=== PATIENT | female | born 1990 | race African-American/Black ===

== ENCOUNTER 2020-02-06 10:01 | Outpatient (CLI) | payer OTHER, SELFPAY ==
[2020-02-06 10:43] LABS: Hemoglobin 11.2 g/dL (12.0-15.0); Mean Corpuscular HGB Conc 33.9 g/dl (32-36); Mean Corpuscular Hemoglobin 31.3 pg (26-34); Mean Corpuscular Volume 92.2 fl (80-100); Platelet Count Result 227 k/mm3 (150-375); Red Blood Count 3.58 M/mm3 (4.2-5.4); Red Cell Distribution Width 12.6 % (11.5-14.5); White Blood Count 8.8 K/mm3 (4.5-10.0)
[2020-02-06 11:37] LABS: HIV 1/2 Ab P24 Ag Result Negative (Negative)
[2020-02-06 12:11] LABS: Hepatitis B Surface Antigen Negative (Negative); Rubella IgG Antibody 86.4 IU/ML
[2020-02-07 21:11] LABS: Rapid Plasma Reagin Non-Reactive (NonReactive)
[2020-02-09 18:58] LABS: CMV IgG Antibody <0.60 U/mL (<0.60)
== END 2020-02-06 10:02 | disposition home or self-care (01) ==
LOC: ANHLAB 10:04
PROVIDERS: Visit Provider Obstetrics & Gynecology
DX: Z34.81 Encounter for supervision of other normal pregnancy, first trimester (principal); Z3A.00 Weeks of gestation of pregnancy not specified
CPT/HCPCS: 36415; 84702; 85027; 86592; 86644; 86703; 86747; 86762; 86787; 86850; 86900; 86901; 87086; 87088; 87340; G0432

== ENCOUNTER 2020-02-16 14:31 | Emergency (ER) | payer OTHER, SELFPAY ==
[2020-02-16 14:36] VITALS: BP 112/68; PULSE 99; RESP 18; TEMP 36.4; O2SAT 97
--- NOTE | 2020-02-16 14:52 | ED.GENADULT ---
HPI - General Adult General Chief complaint: Headache Stated complaint: with headache Time Seen by Provider: 02/16/20 14:44 Source: patient History of Present Illness HPI narrative: Patient is a 29 y/o female complaining of frontal headache for last 3 weeks. She describes her headache as sharp and throbbing. She rates her headache as 7/10. Her headache is mostly on the right side. She took Ibuprofen, which did not help. She has no fever, chill, neck pain, focal weakness or numbness. She is able to ambulate without difficulty. Of note, she states that she is 3 month . Related Data Home Medications Medication Instructions Recorded Confirmed vit no.[id number] tablet 02/16/20 [Classic ] Allergies Allergy/AdvReac Type Severity Reaction Status Date / Time No Known Allergies Allergy Unknown Verified 02/16/20 14:41 Review of Systems Constitutional: Constitutional: Denies chills, Denies fever(s), Reports headache(s) and Denies weakness Eyes: Eyes: Denies blurry vision ENT: Reports headache(s) and Denies neck pain Cardiovascular: Cardiovascular: Denies chest pain and Denies dyspnea Respiratory: Respiratory: Denies cough and Denies dyspnea Gastrointestinal: Gastrointestinal: Denies abdominal pain, Denies diarrhea, Denies nausea and Denies vomiting Genitourinary: Genitourinary: Denies hematuria and Denies dysuria Musculoskeletal: Musculoskeletal: Denies back pain and Denies neck pain Neurologic: Reports headache(s) and Denies weakness PMFSH Social History Social History Gender identity (if verbalized by the patient): Female Exam Const: General: no acute distress and well developed Orientation/consciousness: oriented to person, oriented to place, oriented to time and patient oriented x3 HENMT: Head: normocephalic Ears: external ears normal General nose exam: Normal external nose present Eyes: General: appearance normal, both eyes and all related structures Conjunctivae: conjunctivae normal Neck: Neck: normal visual inspection and full ROM Chest: Chest palpation & inspection: normal inspection of the chest and no tenderness Resp: Effort & Inspection: normal respiratory effort Auscultation: clear to auscultation bilaterally Cardio: Rate: regular rate Rhythm: regular rhythm GI: GI Palp: No abdominal tenderness and Yes Soft to palpation Skin: General skin exam: normal color and turgor normal Neuro: General: oriented to person, oriented to place, oriented to time and patient oriented x3 Cranial nerves: Yes CN's II-XII intact bilaterally Cognition (Neuro): normal cognition Speech: normal speech Motor exam (neuro): 5/5 motor strength present throughout Sensory Exam: normal sensation Coordination: [id number]-[id number] test normal and [id number] test normal Extrem: General: normal to inspection, full ROM and no pedal edema Psych: Appearance: grossly normal Mental Status: mental status grossly normal Affect: normal affect Course Reevaluation(s) Reevaluation #1: Patient wants to leave [facility] before evaluation is complete. Instructed patient to avoid NSAIDs and follow up with PCP. She is awake, alert and competent to make medical decision for herself. Date: 02/16/20 Time: 16:42 Vital Signs Vital signs: Vital Signs Temperature 36.4 C L 02/16/20 14:36 Pulse Rate 99 02/16/20 14:36 Respiratory Rate 18 02/16/20 14:36 Blood Pressure 112/68 02/16/20 14:36 Pulse Oximetry 97 02/16/20 14:36 Temperature 36.6 C 02/16/20 15:50 Pulse Rate 84 02/16/20 15:30 Respiratory Rate 18 02/16/20 15:30 Blood Pressure 107/67 02/16/20 15:30 Pulse Oximetry 99 02/16/20 15:30 Medical Decision Making Vital Signs Vital Signs: Vital Signs Temperature 36.4 C L 02/16/20 14:36 Pulse Rate 99 02/16/20 14:36 Respiratory Rate 18 02/16/20 14:36 Blood Pressure 112/68 02/16/20 14:36 Pulse Oximetry
[2020-02-16 15:07] LABS: Basophils Percent Auto 0.3 % (0.2-1.2); Eosinophils Absolute Auto 0.1 K/mm3 (0-0.3); Eosinophils Percent Auto 1.1 % (0-4.4); Hematocrit 33.3 % (37.0-47.0); Hemoglobin 11.5 g/dL (12.0-15.0); Immature Granulocyte Absolute 0.04 K/mm3 (0.00-0.031); Immature Granulocyte Percent A 0.4 % (0-0.5); Lymphocytes Absolute Auto 1.76 K/mm3 (0.9-3.2); Lymphocytes Percent Auto 15.6 % (18.3-44.2); Mean Corpuscular HGB Conc 34.5 g/dl (32-36); Mean Corpuscular Hemoglobin 32.2 pg (26-34); Mean Corpuscular Volume 93.3 fl (80-100); Mean Platelet Volume 9.2 fl (7.4-10.4); Monocytes Absolute Auto 0.5 K/mm3 (0.1-0.6); Monocytes Percent Auto 4.6 % (2.6-8.5); Neutrophils Absolute Auto 8.8 K/mm3 (1.3-6.7); Platelet Count Result 221 k/mm3 (150-375); Red Blood Count 3.57 M/mm3 (4.2-5.4); Red Cell Distribution Width 12.9 % (11.5-14.5); White Blood Count 11.3 K/mm3 (4.5-10.0)
[2020-02-16 15:18] LABS: Anion Gap 9 mmol/L (8-16); Blood Urea Nitrogen 12 mg/dL (7-17); Calcium 9.8 mg/dL (8.4-10.2); Carbon Dioxide 26 mmol/L (22-30); Chloride 99 mmol/L (98-107); Estimated CRCL calculation 98 ml/min; Estimated Glomerular Filt Rate > 60; Glucose 97 mg/dL (65-105); Sodium 134 mmol/L (137-145)
[2020-02-16] MEDS: SODIUM CHLORIDE 0.9% IV 1,000 ML 999 ML IV CONT (15:21)
[2020-02-16 15:30] VITALS: BP 107/67; PULSE 84; RESP 18; TEMP 36.6; O2SAT 99
[2020-02-16 15:50] VITALS: TEMP 36.6
[2020-02-16 16:17] LABS: Add Urine Microscopic? YES; Appearance Urine Cloudy (Clear); Bacteria Urine Trace /hpf; Bilirubin Urine Negative (Negative); Blood Urine Negative (Negative); Color Urine Yellow (Yellow); Glucose Urine UA Negative (Negative); Ketones Urine Negative (Negative); Leukocyte Esterase Ur Negative LEU/UL (Negative); Mucus Urine Rare /lpf; Nitrate Urine Negative (Negative); Protein Urine Negative (Negative); RBC Urine 0-2 /hpf (0-2); Squamous Epithelial Cell Urine Many /hpf (Few); Urobilinogen Urine Negative mg/dL (<2.0); WBC Urine 0-3 /hpf
--- NOTE | 2020-02-16 16:36 | PC.NURSE ---
Keesha Castillo, pt. wants to leave AMA; Dr. Gunner matthews, may discharge pt.
== END 2020-02-16 16:52 | disposition left against medical advice (07) ==
PROVIDERS: Emergency Provider Emergency Medicine
DX: O26.891 Other specified pregnancy related conditions, first trimester (principal); R51.9 Headache, unspecified; Z3A.00 Weeks of gestation of pregnancy not specified
CPT/HCPCS: 36415; 80048; 81001; 85025; 96360; 99283; A9270; J7030

== ENCOUNTER 2020-05-24 17:52 | Observation (INO) | payer OTHER, SELFPAY ==
[2020-05-24] VITALS (7 sets, daily range): BP systolic 112–126; BP diastolic 67–70; PULSE 84–110; RESP 16; TEMP 37.1; O2SAT 100; BMI 32.0
--- NOTE | 2020-05-24 17:52 | OBADM ---
This patient, Clau Thao, admitted to the OB room OB Post 117 for observation. Patient/family oriented to hospital policies and general routines including ID bracelet, bed and alarms, visiting hours, pain management, procedures, bathroom and other care routines, personal items, smoking policy, room service/diet, and visiting hours. Patient/Family are encouraged to report perceived risks to care and to ask questions if they do not understand what they are told or what they should do.
[2020-05-24] MEDS: ACETAMINOPHEN 500 MG TABLET 1000 MG PO (18:16)
[2020-05-24] MEDS: LACTATED RINGERS 1,000 ML 999 ML IV CONT (19:14)
[2020-05-24] MEDS: TERBUTALINE SULFATE 1 MG/ML VIAL 0.25 MG SUB-Q (20:42)
--- NOTE | 2020-05-24 22:45 | PC.NURSE ---
pt discharged, pt waiting in room with her belongings and discharge paperwork awaiting the arrival of her ride home. Pt comfortable and has no complaints or questions at this time.
--- NOTE | 2020-05-30 09:01 | PM.OBTRLD ---
OB - Triage/Final Diagnosis Visit Information Reason for evaluation: decreased movement Comments/Additional reasons for admission: I have assessed the risk for this patient, Clau Bi Thao, and determined that she would benefit from observation care.
== END 2020-05-24 23:26 | disposition home or self-care (01) ==
PROVIDERS: Admitting Provider Obstetrics & Gynecology; Visit Provider Obstetrics & Gynecology
DX: O36.8190 Decreased fetal movements, unspecified trimester, not applicable or unspecified (principal); Z3A.00 Weeks of gestation of pregnancy not specified
CPT/HCPCS: 96360; 96372; A9270; G0378; G0379; J3105; J7120

== ENCOUNTER 2020-06-02 11:10 | Outpatient (CLI) | payer OTHER, SELFPAY ==
[2020-06-02 12:58] LABS: Hemoglobin 11.6 g/dL (12.0-15.0); Mean Corpuscular HGB Conc 33.1 g/dl (32-36); Mean Corpuscular Hemoglobin 32.7 pg (26-34); Mean Corpuscular Volume 98.6 fl (80-100); Platelet Count Result 189 k/mm3 (150-375); Red Blood Count 3.55 M/mm3 (4.2-5.4); Red Cell Distribution Width 12.8 % (11.5-14.5); White Blood Count 10.7 K/mm3 (4.5-10.0)
[2020-06-02 13:36] LABS: Glucose 1 Hour PP 50gm Dose 116 mg/dL
[2020-06-02 14:17] LABS: HIV 1/2 Ab P24 Ag Result Negative (Negative)
== END 2020-06-02 11:11 | disposition home or self-care (01) ==
LOC: ANHLAB 11:12
PROVIDERS: Visit Provider Obstetrics & Gynecology
DX: Z34.92 Encounter for supervision of normal pregnancy, unspecified, second trimester (principal); Z3A.00 Weeks of gestation of pregnancy not specified
CPT/HCPCS: 36415; 82947; 85027; 86703; G0432

== ENCOUNTER 2020-08-20 16:25 | Inpatient (IN) | payer OTHER, SELFPAY ==
--- NOTE | 2020-07-29 11:04 | PC.NURSE ---
HAS PATIENT -- 6 PARA 1 ,1-SAB-3 EAB---PATIENT STATES SHE HAS ONLY HAD 4 PREGNANCIES, 1 LIVING CHILD,1-MOLAR AND 1-SAB
[2020-08-20] VITALS (16 sets, daily range): BP systolic 87–124; BP diastolic 51–80; PULSE 80–102; RESP 18; TEMP 36.3–36.4; BMI 28.3
[2020-08-20 17:20] LABS: Basophils Percent Auto 0.2 % (0.2-1.2); Eosinophils Absolute Auto 0.1 K/mm3 (0-0.3); Eosinophils Percent Auto 0.5 % (0-4.4); Hematocrit 36.2 % (37.0-47.0); Hemoglobin 12.1 g/dL (12.0-15.0); Immature Granulocyte Absolute 0.03 K/mm3 (0.00-0.031); Immature Granulocyte Percent A 0.3 % (0-0.5); Lymphocytes Absolute Auto 1.39 K/mm3 (0.9-3.2); Mean Corpuscular HGB Conc 33.4 g/dl (32-36); Mean Corpuscular Hemoglobin 32.5 pg (26-34); Mean Corpuscular Volume 97.3 fl (80-100); Mean Platelet Volume 10.2 fl (7.4-10.4); Monocytes Absolute Auto 0.6 K/mm3 (0.1-0.6); Monocytes Percent Auto 6.3 % (2.6-8.5); Neutrophils Absolute Auto 7.2 K/mm3 (1.3-6.7); Neutrophils Percent Auto 77.7 % (45.5-73.1); Platelet Count Result 150 k/mm3 (150-375); Red Blood Count 3.72 M/mm3 (4.2-5.4); Red Cell Distribution Width 13.9 % (11.5-14.5); White Blood Count 9.3 K/mm3 (4.5-10.0)
[2020-08-20] MEDS: DINOPROSTONE 10 MG VAG INSERT VAGINAL (18:03)
--- NOTE | 2020-08-20 18:28 | LDADM ---
This patient, Clau Thao, was admitted to Labor/Delivery/Recovery 108 on 08/20/20 at 16:25. Plans for labor, pain management and were discussed with patient. Patient/family oriented to hospital policies and general routines including ID bracelet, bed and alarms, visiting hours, pain management, procedures, bathroom and other care routines, personal items, smoking policy, room service/diet and guest tray routines, security routines, and visiting hours. Patient/Family are encouraged to report perceived risks to care and to ask questions if they do not understand what they are told or what they should do. See [facility] for further documentation.
[2020-08-21] VITALS (188 sets, daily range): BP systolic 92–131; BP diastolic 45–109; PULSE 53–191; RESP 18–20; TEMP 36.4–36.8; O2SAT 82–100
[2020-08-21] MEDS: LACTATED RINGERS 1,000 ML 125 ML IV CONT ×4 (05:03→12:14)
[2020-08-21] MEDS: OXYTOCIN 30 UNITS/NS 500 ML 30 UNITS/500 ML BAG IV CONT (05:05)
[2020-08-21] MEDS: ONDANSETRON INJ 4 MG/2 ML VIAL IV PUSH (12:15)
[2020-08-21 12:56] LABS: Rapid Plasma Reagin Non-Reactive (NonReactive)
--- NOTE | 2020-08-21 18:27 | WPDHPUPDATE1 ---
History and Physical Update Update Date/Time: 08/21/20 18:27 History and Physical has been reviewed, including an updated exam of the patient. There are NO changes in the patient's condition. Risks, benefits, and alternatives have been discussed and questions answered. Patient agrees to proceed with procedure.
--- NOTE | 2020-08-21 18:27 | WPDOBADMIT ---
Obstetrics - Admit Note Admission Note: record reviewed. No pertinent additions to the history and/or any subsequent changes in the physical findings that are not consistent with the expected course of the were found. Additions to the history and/or subsequent changes in the physical findings follow. None.
--- NOTE | 2020-08-21 18:27 | PM.OBPRVD ---
OB - Delivery Note Procedure Route of delivery: Episiotomy description: None Laceration Description: None Specimen: Yes Quantitative Blood Loss (ml): 300 Anesthesia type: Epidural Narrative: Patient prepped and draped in usual manner for this procedure. Maternal expulsive efforts readily delivered vertex further effort delivered the anterior/left shoulder and the rest of baby was delivered without difficulty. Placenta delivered spontaneously. Cervix vagina vulva were inspected no lacerations or tears. At this point the presurgery was considered terminated and immediate postop condition mother and baby were both excellent. Baby Weeks of gestation at delivery: 39 Weight (pounds): 8 Weight (ounces): 9 score one minute: 8 score five minutes: 9
[2020-08-21] MEDS: OXYTOCIN 30 UNITS/NS 500 ML 30 UNITS/500 ML BAG 125 UNITS IV CONT (18:50)
[2020-08-21] MEDS: IBUPROFEN 600 MG TABLET PO (22:09)
[2020-08-22] VITALS (9 sets, daily range): BP systolic 101–122; BP diastolic 53–76; PULSE 89–101; RESP 16–18; TEMP 36.6–37; O2SAT 96–100
[2020-08-22 05:09] LABS: Hematocrit 33.9 % (37.0-47.0); Hemoglobin 10.9 g/dL (12.0-15.0)
[2020-08-22] MEDS: IBUPROFEN 600 MG TABLET PO (07:52)
[2020-08-22] MEDS: MULTIVIT/MIN/PREN/FOL AC/IRON TABLET 1 TAB PO (07:53)
--- NOTE | 2020-08-22 08:49 | PM.OBDSVD ---
DS: Admitting Diagnosis Admitting Diagnosis Admitting Diagnosis: OB - DS: Summary OB Procedures : None OB Procedures Intrapartum: Spontaneous Vag Delivery OB Procedures: : None Time Spent with Patient Time attestation: Total time spent providing and/or coordinating discharge services: DS: Data Data Completed and Pending Pending studies at discharge: Pending at discharge 08/20/20 18:19 Surgical [PTH] Routine Labs on day of discharge: Labs from last 24 hours 08/22/20 08/20/20 04:33 17:10 Hgb 10.9 L Hct 33.9 L RPR Non-reactive Discharge Plan Discharge Discharging Clinician: Vinod Lewis Anticipated Discharge Date/Time: 08/23/20 12:00 Patient Disposition: Home, Self-Care Activity: as tolerated Diet: as tolerated Patient Instructions: Antibiotic Form Stand Alone Forms: General Discharge Information Follow-up/Referrals: Vinod Lewis MD [Physician] - 3 Weeks Discharge Medications: New ibuprofen 600 mg Tablet 600 mg PO Q6H PRN (Reason: Cramping) Qty: 30 RF: 0 Continued Classic 28 mg iron- 800 mcg Tablet 1 tablet PO DAILY RF: 0 Date of admission: 08/20/20 16:25 Primary Care Provider: PHYSICIAN,SALES PROMOTION COORDINATOR Admitting Provider: Vinod Lewis Attending physician on admission: Vinod Lewis Condition: Stable
[2020-08-22] MEDS: ACETAMINOPHEN 325 MG TABLET 650 MG PO (09:55)
--- NOTE | 2020-08-22 17:10 | PC.NURSE ---
Patient transferred to post room #281 ambulatory. Oriented to unit, room, information board, rooming in, admission packet and security measures. Patient verbalizes understanding.
--- NOTE | 2020-08-23 01:57 | PC.NURSE ---
08/22/2020 at 1950 I spoke to [facility] regarding her herpes status and that she was taking acyclovir while she was . Dr. Lewis has not ordered the patient to continue to take the medication after delivery. With no visitors or family in the room on or on the cell phone I continued to discuss the patient's herpes. I discussed the high importance of excellent handwashing and if the patient ever notices a breakout she needs to take or get a prescription for acyclovir. We also discussed the possibility of baby getting herpes from [facility] and how it may manifest itself as neurological problems in baby with seizures (rhythmic jerking), lethargy, poor eating, or baby just not acting right. I stressed the importance that if ANY of these symptoms show up in baby mother needs to call the pediatrican at once. Mother stated understanding.
[2020-08-23] MEDS: ACETAMINOPHEN 325 MG TABLET 650 MG PO (05:15)
[2020-08-23] MEDS: IBUPROFEN 600 MG TABLET PO (05:15)
--- NOTE | 2020-08-23 06:02 | PC.NURSE ---
08/23/2020 at 0050 Mother and mother's significant other were in mother's bed. Mother's bed was also raised to at least 2.5' off the floor. I immediately informed mother that for her safety that the bed must stay in the lower position. Mother states understanding.
[2020-08-23 08:10] VITALS: BP 107/66; PULSE 70; RESP 18; TEMP 36.3
--- NOTE | 2020-08-23 08:10 | PC.NURSE ---
Patient viewed the discharge video Mother & Baby Care, The First Two Weeks . Patient was given the opportunity and encouraged to ask questions. Patient verbalized understanding of information shared and has been given the mother/baby guide for home reference.
[2020-08-26 09:25] VITALS: BP 117/75; PULSE 82; RESP 20; TEMP 36.9; O2SAT 100
--- NOTE | 2020-09-01 23:30 | P.DS_ITS ---
DS: Admitting Diagnosis Admitting Diagnosis OB - DS: Summary OB Procedures : None OB Procedures Intrapartum: Spontaneous Vag Delivery OB Procedures: : None Time Spent with Patient Time attestation: Total time spent providing and/or coordinating discharge services: DS: Data Data Completed and Pending Completed studies during hospitalization: Pending at discharge 08/20/20 18:19 Surgical [PTH] Routine Discharge Plan Discharge Discharging Clinician: Vinod Lewis Anticipated Discharge Date/Time: 08/23/20 12:00 Patient Disposition: Home, Self-Care Activity: as tolerated Diet: as tolerated Discharge Instructions: Education: Mom and Baby Guide and Preeclampsia Handout Given to: Mother Follow-Up: Call your delivering provider's office for an appointment to be seen in: 3 weeks Mom and baby should come to the [facility] for the follow-up appointment. Appointment Date/Time: August 26, 2020 at 9:00 am What to expect at your follow-up visit: Physical Assessment Call [phone] if you are unable to keep your appointment time. BREAST CARE: * Wear a snug supportive bra. * For engorgement discomfort: Breast Feeding: * Apply warm moist washcloths * Express milk as needed to relieve engorgement * Wear loose clothing Bottle Feeding: * May apply ice packs EPISIOTOMY/PERINEAL CARE: * Until bleeding stops, use your david bottle after urinating * Change your pad frequently throughout the day * You may take sitz baths several times a day (fill your bathtub with warm water and soak for 20 minutes.) Do NOT bathe in the water * No tub baths until seen by your physician - You may shower ACTIVITY: * Rest as much as possible. * Do not exercise or lift anything heavier than your baby (such as laundry or other children.) * Avoid stairs or driving as much as possible. * Do not put anything into the vagina. No douching, tampons, or sexual activity until seen by physician. NOTIFY PHYSICIAN IF YOU HAVE ANY QUESTIONS OR IF ANY OF THE FOLLOWING SYMPTOMS OCCUR: * If your perineum becomes red, swollen, or more painful than what you have experienced in the hospital. * If your vaginal bleeding becomes foul smelling. * If your vaginal bleeding becomes more heavy than a period or if your bleeding changes from pink to bright red. However, you may pass an occasional walnut- sized clot once or twice for the first week . * If you experience a sharp, shooting pain in you calves. * If you discover a hard, reddened area on your breast or if you experience flu- like symptoms. DIET: * Eat regular, well-balanced meals. * Drink plenty of fluids daily. Stand Alone Forms: General Discharge Information Follow-up/Referrals: Vinod Lewis MD [Physician] - 3 Weeks Discharge Medications: New ibuprofen 600 mg Tablet 600 mg PO Q6H PRN (Reason: Cramping) Qty: 30 RF: 0 Continued Classic 28 mg iron- 800 mcg Tablet 1 tablet PO DAILY RF: 0 Date of admission: 08/20/20 16:25 Primary Care Provider: PHYSICIAN,SKEIN MERCERIZING MACHINE OPERATOR Admitting Provider: Vinod Lewis Attending physician on admission: Vinod Lewis Condition: Stable
== END 2020-08-23 13:16 | disposition home or self-care (01) | DRG 560 ==
LOC: ANHLDR 08-21 08:28 → ANHOBPP 08-21 21:31 → ANHOB2 08-22 17:14
PROVIDERS: Admitting Provider Obstetrics & Gynecology; Visit Provider Obstetrics & Gynecology
DX: O69.81X0 Labor and delivery complicated by cord around neck, without compression, not applicable or unspecified (principal); Z37.0 Single live birth; Z3A.40 40 weeks gestation of pregnancy; O36.8330 Maternal care for abnormalities of the fetal heart rate or rhythm, third trimester, not applicable or unspecified
CPT/HCPCS: 36415; 85014; 85018; 85025; 86592; 86850; 86900; 86901; 88307; A9270; J2405; J2590; J2795; J7120

== ENCOUNTER 2020-11-30 16:06 | Outpatient (CLI) | payer OTHER, SELFPAY ==
[2020-11-30 16:56] LABS: Beta HCG Quantitative < 2.39 mIU/ML
== END 2020-11-30 16:07 | disposition home or self-care (01) ==
PROVIDERS: Visit Provider Obstetrics & Gynecology
DX: N92.6 Irregular menstruation, unspecified (principal)
CPT/HCPCS: 36415; 84702

== ENCOUNTER 2021-06-24 17:02 | Outpatient (CLI) | payer OTHER, SELFPAY | END 2021-06-24 17:03 | disposition home or self-care (01) | LOC: ANHLAB 17:03 | PROVIDERS: Visit Provider Obstetrics & Gynecology | DX: N91.2 Amenorrhea, unspecified (principal) | CPT/HCPCS: 36415; 84702 ==

== ENCOUNTER 2021-06-30 16:41 | Outpatient (CLI) | payer OTHER, SELFPAY | END 2021-06-30 16:42 | disposition home or self-care (01) | LOC: ANHLAB 16:45 | PROVIDERS: Visit Provider Obstetrics & Gynecology | DX: N92.6 Irregular menstruation, unspecified (principal) | CPT/HCPCS: 36415; 84702 ==

== ENCOUNTER 2021-07-01 16:59 | Outpatient (CLI) | payer OTHER, SELFPAY ==
--- NOTE | ~2021-07-01 | US_ITS ---
EXAMINATION: US OB <= 14 weeks fetus DATE: 07/01/2021 17:36 INDICATION: Evaluate dates. TECHNIQUE: Real-time transabdominal and transvaginal obstetric ultrasound. FINDINGS: No prior studies for comparison. The uterus measures 9.8 x 4.5 x 7 cm. There is an intrauterine gestational sac, with no sac identifie d. Gestational sac measures 1.41 cm corresponding to a 6 week 2 day gestation. No pole or heart motions detected. Right ovary is not visualized. Left ovary is unremarkable. No free fluid in the pelvis. IMPRESSION: 1. Intrauterine gestational sac containing a yolk sac corresponding to 6 week 2 day gestation. No fet al pole is identified. Differential diagnosis includes very early intrauterine , failed preg karon and less likely ectopic . Recommend follow-up with serial quantitative beta-hCG levels and ultrasound as clinically indicated. Reviewed, dictated and finalized at location A. IMPRESSION: 1. Intrauterine gestational sac containing a yolk sac corresponding to 6 week 2 day gestation. No pole is identified. Differential diagnosis includes ve ry early intrauterine , failed and less likely ectopic pregn shyanne. Recommend follow-up with serial quantitative beta-hCG levels and ultrasou nd as clinically indicated.
== END 2021-07-01 17:00 | disposition home or self-care (01) ==
PROVIDERS: Visit Provider Obstetrics & Gynecology
DX: O20.0 Threatened abortion (principal); Z3A.01 Less than 8 weeks gestation of pregnancy
CPT/HCPCS: 76801

== ENCOUNTER 2021-07-16 15:33 | Emergency (ER) | payer OTHER, SELFPAY ==
[2021-07-16 15:35] VITALS: BP 113/77; PULSE 87; RESP 14; TEMP 36.3; O2SAT 100
[2021-07-16 16:09] LABS: Basophils Percent Auto 0.4 % (0.2-1.2); Eosinophils Absolute Auto 0.1 K/mm3 (0-0.3); Eosinophils Percent Auto 1.6 % (0-4.4); Hematocrit 36.7 % (37.0-47.0); Hemoglobin 12.1 g/dL (12.0-15.0); Immature Granulocyte Absolute 0.02 K/mm3 (0.00-0.031); Immature Granulocyte Percent A 0.3 % (0-0.5); Lymphocytes Absolute Auto 2.18 K/mm3 (0.9-3.2); Lymphocytes Percent Auto 28.7 % (18.3-44.2); Mean Corpuscular Hemoglobin 31.1 pg (26-34); Mean Corpuscular Volume 94.3 fl (80-100); Mean Platelet Volume 9.1 fl (7.4-10.4); Monocytes Absolute Auto 0.4 K/mm3 (0.1-0.6); Monocytes Percent Auto 5.4 % (2.6-8.5); Neutrophils Absolute Auto 4.8 K/mm3 (1.3-6.7); Neutrophils Percent Auto 63.6 % (45.5-73.1); Platelet Count Result 213 k/mm3 (150-375); Red Blood Count 3.89 M/mm3 (4.2-5.4); Red Cell Distribution Width 12.7 % (11.5-14.5); White Blood Count 7.6 K/mm3 (4.5-10.0)
--- NOTE | 2021-07-16 16:59 | ED.PREGNANCY ---
HPI - General Chief complaint: Vaginal Bleeding Stated complaint: miscarrige Time Seen by Provider: 07/16/21 15:58 Source: patient Mode of arrival: ambulatory Limitations: no limitations History of Present Illness HPI Narrative: 31-year-old female with history of uterine cancer and molar presents today with complaints of vaginal bleeding for about 1 week but just prior to arrival patient had an increase in vaginal bleeding with a large clot. 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 Patient seen by her OB about 1 month ago where work-up was done for a possible . Beta hCG was positive ultrasound at that time showed. Intrauterine gestational sac containing a yolk sac corresponding to 6 week 2 day gestation. No pole is identified. Differential diagnosis includes very early intrauterine , failed and less likely ectopic . Recommend follow-up with serial quantitative beta-hCG levels and ultrasound as clinically indicated. Patient with moderate abdominal cramping at current time. Related Data Allergies Allergy/AdvReac Type Severity Reaction Status Date / Time No Known Allergies Allergy Unknown Verified 07/16/21 16:02 Review of Systems Review of Systems: CONSTITUTIONAL: Denies fever, chills, or sweats. EYES: Denies visual changes, redness, or discharge. ENT: Denies rhinorrhea, congestion, sore throat, or otalgia. CARDIOVASCULAR: Denies chest pain, palpitations, or edema. RESPIRATORY: Denies cough or dyspnea. GASTROINTESTINAL: Abdominal cramping. Denies abdominal pain, nausea, vomiting, or diarrhea. GENITOURINARY: Vaginal bleeding. Denies dysuria or hematuria. SKIN: Denies rash or itching. MUSCULOSKELETAL: Denies back pain, joint pain, or myalgia. NEUROLOGIC: Denies headache, numbness, dizziness, or weakness. PSYCHIATRIC: Denies anxiety or depression. [facility] Past Medical History Medical History (Updated 07/16/21 @ 17:47 by Jing Oconnell APRN) Molar Uterine cancer Family History Family History Other No pertinent family history Social History Social History Smoking status: Never smoker Second hand tobacco smoke exposure: No Substance use: never Gender identity (if verbalized by the patient): Female Spiritual care concerns: No Exam Narrative: CONSTITUTIONAL: Denies fever, chills, or sweats. EYES: Denies visual changes, redness, or discharge. ENT: Denies rhinorrhea, congestion, sore throat, or otalgia. CARDIOVASCULAR: Denies chest pain, palpitations, or edema. RESPIRATORY: Denies cough or dyspnea. GASTROINTESTINAL: Denies abdominal pain, nausea, vomiting, or diarrhea. GENITOURINARY: Pelvic exam completed, mill platform supervisor present. Patient with moderate amount of blood with multiple clots in vaginal vault. Blood is bright red in nature. SKIN: Denies rash or itching. MUSCULOSKELETAL: Denies back pain, joint pain, or myalgia. NEUROLOGIC: Denies headache, numbness, dizziness, or weakness. PSYCHIATRIC: Denies anxiety or depression. Course Course Emergency Course: Reviewed labs with patient. Patient aware that she is currently having a miscarriage. Dr. Lewis consulted due to patient's history. Patient be discharged home, pelvic rest, ibuprofen or Tylenol as needed for pain, and follow-up Monday in office. Vital Signs Vital signs: Vital Signs Temperature 36.3 C L 07/16/21 15:35 Pulse Rate 87 07/16/21 15:35 Respiratory Rate 14 07/16/21 15:35 Blood Pressure 113/77 07/16/21 15:35 Pulse Oximetry 100 07/16/21 15:35 Oxygen Delivery Room Air 07/16/21 15:35 Temperature 36.3 C L 07/16/21 15:35 Pulse Rate 87 07/16/21 15:35 Respiratory Rate 14 07/16/21 15:35 Blood Pressure 113/77 07/16/21 15:35 Pulse Oximetry 100 07/16/21 15:35 Oxygen Delivery Room Air 07/16/21 15:35
[2021-07-16] MEDS: IBUPROFEN 600 MG TABLET PO (17:52)
[2021-07-16 17:59] VITALS: BP 115/70; PULSE 72; RESP 16; O2SAT 98
== END 2021-07-16 18:01 | disposition home or self-care (01) ==
PROVIDERS: Emergency Medicine; Emergency Provider Nurse Practitioner Family
DX: O03.9 Complete or unspecified spontaneous abortion without complication (principal); Z85.42 Personal history of malignant neoplasm of other parts of uterus; Z92.21 Personal history of antineoplastic chemotherapy
CPT/HCPCS: 36415; 84702; 85025; 85461; 99284; A9270

== ENCOUNTER 2021-10-10 12:06 | Emergency (ER) | payer OTHER, SELFPAY ==
--- NOTE | 2021-10-10 12:15 | ED.URI ---
HPI - URI/Sore Throat General Chief Complaint: Ear Stated Complaint: Back Head Pain,Left Ear Irritation Time Seen by Provider: 10/10/21 12:15 Source: patient, RN notes reviewed and old records reviewed Mode of arrival: ambulatory Limitations: no limitations History of Present Illness HPI Narrative: 31-year-old female presents to the [facility] with complaints of a headache for 2-3 months and left ear pain since last night. Has not taken anything for the ear pain or the headache. States the headache gets worse when she is at work. Related Data Allergies Allergy/AdvReac Type Severity Reaction Status Date / Time No Known Allergies Allergy Unknown Verified 10/10/21 12:10 Review of Systems Review of Systems: All systems reviewed & are unremarkable except as noted in HPI and below Constitutional: Constitutional: Reports no additional constitutional complaints, Denies chills and Denies fever(s) Eyes: Eyes: Reports no additional eye complaints ENT: Reports as per HPI Cardiovascular: Cardiovascular: Reports no additional cardiovascular complaints Respiratory: Respiratory: Reports no additional respiratory complaints Gastrointestinal: Gastrointestinal: Reports no additional gastrointestinal complaints Musculoskeletal: Musculoskeletal: Reports no additional musculoskeletal complaints Integumentary/Breasts: Skin/Breast: Reports system reviewed and no additional complaints, except as docu Neurologic: Reports as per HPI and Reports headache(s) Psychiatric: Psychiatric: Reports no additional psychiatric complaints Allergic/Immunologic: Allergic/Immunologic: Reports no additional allergic/immunologic complaints PMFSH Past Medical History Medical History Molar Uterine cancer Family History Family History Other No pertinent family history Social History Social History Smoking status: Never smoker Second hand tobacco smoke exposure: No Substance use: never Gender identity (if verbalized by the patient): Female Spiritual care concerns: No Comments At the time of my signature, I reviewed and agree with the nursing past medical, surgical, social, and family history. There is no relevant family history pertinent to the patient complaint. Exam Const: General: healthy appearing, no acute distress and alert Nutritional Appearance: well nourished Orientation/consciousness: patient oriented x3 Limitations: no limitations HENMT: Head: normal to inspection Ears: external ears normal, EAC's normal and TM abnormal bulging on the left and wth effusion serous on the left Eyes: General: appearance normal, both eyes and all related structures Pupils: Equal, round and reactive pupils present Neck: Neck: normal visual inspection, no lymphadenopathy and no meningeal signs Chest: Chest palpation & inspection: normal inspection of the chest Resp: Effort & Inspection: normal respiratory effort and no use of accessory muscles Auscultation: clear to auscultation bilaterally, no crackles, no rales, no rhonchi and no wheezes Cardio: Rate: regular rate Rhythm: regular rhythm Back/Spine/Pelvis: Cervical Spine: normal cervical lordosis Thoracic/Lumbar Spine: thoracic and lumbar spine normal to inspection Skin: General skin exam: normal color Rashes: no rashes Wounds: no wounds Neuro: General: patient oriented x3, moves all extremities, no meningeal signs and no focal motor deficits Cranial nerves: Yes Equal, round and reactive pupils present Speech: normal speech Gait exam (Neuro): Normal gait present Extrem: General: normal to inspection, full ROM and capillary refill normal Psych: Appearance: grossly normal and well kempt Mental Status: mental status grossly normal Affect: normal affect Attitude: cooperative Thought content: Yes Normal thought
[2021-10-10 12:17] VITALS: BP 103/80; PULSE 86; RESP 16; TEMP 36.7; O2SAT 100
[2021-10-10 12:23] VITALS: BP 103/80; PULSE 86; RESP 16; TEMP 36.7; O2SAT 100
== END 2021-10-10 12:30 | disposition home or self-care (01) ==
PROVIDERS: Emergency Provider Nurse Practitioner
DX: R51.9 Headache, unspecified (principal); H65.92 Unspecified nonsuppurative otitis media, left ear
CPT/HCPCS: 99213; G0463

== ENCOUNTER 2021-12-08 14:17 | Emergency (ER) | payer OTHER, SELFPAY ==
[2021-12-08 14:28] VITALS: BP 114/72; PULSE 97; RESP 16; TEMP 36.9; O2SAT 100
--- NOTE | 2021-12-08 15:27 | ED.URI ---
HPI - URI/Sore Throat General Chief Complaint: Upper Respiratory Infection Stated Complaint: uri Time Seen by Provider: 12/08/21 15:08 Source: patient Mode of arrival: ambulatory Limitations: no limitations History of Present Illness HPI Narrative: patient presents today complaining of 5 day history of bilateral ear pressure, sinus pressure, sore throat, sweats. Denies fever or shortness of breath. She had a negative COVID-19 test today. She currently rates her pain 7/10 and has been taking ibuprofen without relief. Related Data Home Medications Medication Instructions Recorded Confirmed No Home Medications 12/08/21 12/08/21 Allergies Allergy/AdvReac Type Severity Reaction Status Date / Time No Known Allergies Allergy Unknown Verified 12/08/21 14:38 Review of Systems Review of Systems: CONSTITUTIONAL: Denies body aches, fever, chills. + Sweats EYES: Denies visual changes, redness, or discharge. ENT: Denies rhinorrhea, sore throat. + bilateral ear pressure, sore throat CARDIOVASCULAR: Denies chest pain, palpitations, or edema. RESPIRATORY: Denies cough or dyspnea. GASTROINTESTINAL: Denies abdominal pain, nausea, vomiting, or diarrhea. GENITOURINARY: Denies dysuria or hematuria. SKIN: Denies rash, itching, or wounds. MUSCULOSKELETAL: Denies back pain, joint pain, or myalgia. NEUROLOGIC: Denies headache, numbness, tingling, or weakness. PSYCH: Denies depression or anxiety. PMFSH Past Medical History Medical History Molar Uterine cancer Family History Family History Other No pertinent family history Social History Social History Smoking status: Never smoker Second hand tobacco smoke exposure: No Substance use: never Gender identity (if verbalized by the patient): Female Spiritual care concerns: No Comments At time of signature, I have reviewed and agree with nursing past medical, surgical, social and family history unless otherwise noted. Please see nursing chart for further information. There is no relevant family history pertinent to the presenting complaint Exam Narrative: GENERAL: mildly ill-appearing, well-nourished, and in no acute distress. HEAD: Normocephalic, atraumatic. EYES: EOMI. No redness or drainage. Conjunctivae normal. ENT: Mucous membranes pink and moist. Nares congested.. No rhinorrhea. TMs normal bilaterally. Throat normal. Uvula midline. NECK: Normal AROM. Supple. No lymphadenopathy. CHEST: No respiratory distress. Clear to auscultation. HEART: Regular rate and rhythm. No murmur appreciated. Normal peripheral pulses. EXTREMITIES: Normal range of motion. No edema. SKIN: Warm, dry, no rash. Capillary refill normal. Normal skin turgor. NEURO: No focal deficits. Alert and oriented x3. Gait steady. PSYCH: Normal affect. No signs of depression or anxiety. Course Course Level of Care: Express Care Visit Vital Signs Vital signs: Vital Signs Temperature 98.5 F 12/08/21 14:28 Pulse Rate 97 12/08/21 14:28 Respiratory Rate 16 12/08/21 14:28 Blood Pressure 114/72 12/08/21 14:28 Pulse Oximetry 100 12/08/21 14:28 Oxygen Delivery Room Air 12/08/21 14:28 Temperature 98.5 F 12/08/21 14:28 Pulse Rate 97 12/08/21 14:28 Respiratory Rate 16 12/08/21 14:28 Blood Pressure 114/72 12/08/21 14:28 Pulse Oximetry 100 12/08/21 14:28 Oxygen Delivery Room Air 12/08/21 14:28 reviewed MDM - URI/Sore Throat Differential Diagnosis Differential diagnosis: Likely upper respiratory infection, otitis media, sinusitis, viral infection and influenza Lab Data Attestation: I reviewed the patient's lab results. Labs: Influenza A Screen Negative Reference Range: Negative Influen
== END 2021-12-08 15:35 | disposition home or self-care (01) ==
PROVIDERS: Emergency Provider Nurse Practitioner
DX: J06.9 Acute upper respiratory infection, unspecified (principal); Z85.42 Personal history of malignant neoplasm of other parts of uterus
CPT/HCPCS: 87804; 99213; G0463

== ENCOUNTER 2022-04-07 15:17 | Emergency (ER) | payer OTHER, SELFPAY ==
--- NOTE | ~2022-04-07 | XR_ITS ---
EXAMINATION: XR finger 3rd LT min 2V DATE: 04/07/2022 16:59 INDICATION: Left hand third digit injury. TECHNIQUE: 3 views of left hand third digit were obtained. COMPARISON: None. FINDINGS: Bone alignment is normal. No fracture. Joint spaces are normal. IMPRESSION: 1. No fracture. Reviewed, dictated and finalized at location A. PER REWINDER IMPRESSION: 1. No fracture.
[2022-04-07 16:28] VITALS: BP 122/74; PULSE 82; RESP 12; TEMP 36.4; O2SAT 100
--- NOTE | 2022-04-07 18:13 | ED.GENADULT ---
HPI - General Adult General Chief complaint: Extremity Injury, Upper Stated complaint: left hand injury Time Seen by Provider: 04/07/22 17:23 History of Present Illness HPI narrative: 31-year-old female presented the emergency department for evaluation of a right middle finger injury. Patient states she was working when she twisted her finger and the handle of a pot. Patient reports increased swelling of the left middle finger. Normal range of motion. No other injury. 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 Molar Nexplanon insertion 12/17/13 insertion 12/26/16 removal/insertion Nexplanon removal 12/26/16 removal/insertion 06/12/18 removal Uterine cancer Vaginal delivery 09/09/13 Néstor no complications 08/21/20 [facility] Surgical History Surgical History History of elective x3 Family History Family History Other No pertinent family history Social History Social History (Updated 12/14/21 @ 09:03 by DIANA Yang) Smoking status: Never smoker Second hand tobacco smoke exposure: No Alcohol intake: never Substance use: never Substance use type: does not use Living arrangements: other Additional living arrangements comments: Occupation/Education: occupation Additional occupation/education comments: [employer] Gender identity (if verbalized by the patient): Female Sexual Orientation (if Verbalized by the Patient): Straight or Heterosexual Spiritual care concerns: No Exam Narrative: APPEARANCE: Well appearing, no pain, no distress, well-nourished. HEAD: normocephalic, atraumatic. MUSCULOSKELETAL: Moves all extremities. Normal cap refill and normal range of motion of the left middle finger. Patient does have swelling of the proximal phalanx of the left middle finger. NEURO: Alert. Cranial nerves II through XII intact. Grossly intact SKIN: Warm, dry. Normal Color Course Course Emergency Course: X-rays negative for acute fracture or dislocation. Patient is neurovascular intact. Strong cap refill. Patient does appear to have a hematoma of the proximal phalanx with associated swelling. Patient was provided a metal splint for comfort. Patient requested light duty due to discomfort with range of motion. Patient was encouraged to have close follow-up with her primary care physician. All question concerns were addressed. Vital Signs Vital signs: Vital Signs Temperature 97.5 F L 04/07/22 16:28 Pulse Rate 82 04/07/22 16:28 Respiratory Rate 12 04/07/22 16:28 Blood Pressure 122/74 04/07/22 16:28 Pulse Oximetry 100 04/07/22 16:28 Temperature 97.5 F L 04/07/22 16:28 Pulse Rate 82 04/07/22 16:28 Respiratory Rate 12 04/07/22 16:28 Blood Pressure 122/74 04/07/22 16:28 Pulse Oximetry 100 04/07/22 16:28 Medical Decision Making Vital Signs Vital Signs: Vital Signs Temperature 97.5 F L 04/07/22 16:28 Pulse Rate 82 04/07/22 16:28 Respiratory Rate 12 04/07/22 16:28 Blood Pressure 122/74 04/07/22 16:28 Pulse Oximetry 100 04/07/22 16:28 Temperature 97.5 F L 04/07/22 16:28 Pulse Rate 82 04/07/22 16:28 Respiratory Rate 12 04/07/22 16:28 Blood Pressure 122/74 04/07/22 16:28 Pulse Oximetry 100 04/07/22 16:28 Imaging Data Radiologist's impression: Impressions Finger X-R
== END 2022-04-07 18:35 | disposition home or self-care (01) ==
PROVIDERS: Emergency Provider Emergency Medicine
DX: S63.612A Unspecified sprain of right middle finger, initial encounter (principal); X50.0XXA Overexertion from strenuous movement or load, initial encounter
CPT/HCPCS: 29130; 73140; 99284

== ENCOUNTER 2023-03-27 15:16 | Emergency (ER) | payer OTHER, SELFPAY ==
--- NOTE | ~2023-03-27 | XR_ITS ---
EXAMINATION: [id number] INDICATION: Right foot pain TECHNIQUE: Four views of the right foot are obtained. COMPARISON: None available FINDINGS: No fracture, dislocation, or subluxation. The bones, soft tissues, and joint spaces are nor mal. IMPRESSION: 1. No acute osseous abnormality. Reviewed, dictated and finalized at location B. 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
[2023-03-27 15:32] VITALS: BP 118/73; PULSE 88; RESP 16; TEMP 36.9; O2SAT 100
--- NOTE | 2023-03-27 16:04 | ED.LOWEXIN ---
HPI - Extremity Injury (Lower) General Chief Complaint: Extremity Injury, Lower Stated Complaint: right foot pain Time Seen by Provider: 03/27/23 16:05 Source: patient and RN notes reviewed Mode of arrival: ambulatory Limitations: no limitations History of Present Illness HPI Narrative: 32-year-old female presents with concern for right foot pain. Reports yesterday she was pulling a recliner when she rolled her foot. She reports generalized foot pain, swelling. Reports she walked on it today work and made it worse. She reports she took to wait her mg ibuprofen without relief. Reports she is unable to flex her toes. complaint: foot injury Related Data Allergies Allergy/AdvReac Type Severity Reaction Status Date / Time No Known Allergies Allergy Unknown Verified 03/27/23 15:48 Review of Systems Review of Systems: CONSTITUTIONAL: Denies malaise, chills, sweats, or fever. SKIN: Denies rash or itching, open skin, laceration, abrasion, redness, warmth, swelling. 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 Molar Nexplanon insertion 12/17/13 insertion 12/26/16 removal/insertion Nexplanon removal 12/26/16 removal/insertion 06/12/18 removal Uterine cancer Vaginal delivery 09/09/13 Néstor no complications 08/21/20 [facility] Surgical History Surgical History History of elective x3 Family History Family History Other No pertinent family history Social History Social History (Updated 12/14/21 @ 09:03 by DIANA Yang) Smoking status: Never smoker Second hand tobacco smoke exposure: No Alcohol intake: never Substance use: never Substance use type: does not use Living arrangements: other Additional living arrangements comments: Occupation/Education: occupation Additional occupation/education comments: [employer] Gender identity (if verbalized by the patient): Female Sexual Orientation (if Verbalized by the Patient): Straight or Heterosexual Spiritual care concerns: No Comments At time of signature, agree with nursing past medical, surgical, social and family history. There is no relevant family history pertinent to the presenting complaint Exam Narrative: GENERAL: Well-appearing, well-nourished, and in no acute distress. HEAD: Normocephalic, atraumatic. EYES: PERRLA, conjunctivae clear NECK: Supple. CHEST: Speaks in full sentences. No respiratory distress. HEART: Regular rate and rhythm. Normal and equal peripheral pulses. EXTREMITIES: Right ankle, foot, digits have grossly normal strength and sensation, limited range of motion. Mild edema, no erythema or ecchymosis. Normal sensation with sensitivity to light touch and pain. Generalized tenderness. No open wounds, no skin tenting, no devitalized tissue or atrophy, no trophic changes, no obvious deformity, alignment normal, nearby joints and structures intact. Distal pulses palpable and equal bilaterally, skin warm, dry, pink. Capillary refill less than 3 seconds. SKIN: Warm, dry, no rash. NEURO: Alert and oriented x3. PSYCH: Normal mood and affect Course Course Emergency Course: Patient is aware of diagnosis, understands and agrees to treatment plan. Anticipatory guidance given. Patient agrees to follow-up as directed and is aware of reasons to seek care at the emergency department. Portions of this record may have been created with voice recognition software Level of Care: [place]
== END 2023-03-27 16:28 | disposition home or self-care (01) ==
PROVIDERS: Emergency Provider Nurse Practitioner
DX: S93.601A Unspecified sprain of right foot, initial encounter (principal); X50.9XXA Other and unspecified overexertion or strenuous movements or postures, initial encounter; Z85.42 Personal history of malignant neoplasm of other parts of uterus
CPT/HCPCS: 73630; 99213; G0463

== ENCOUNTER 2023-09-30 08:03 | Emergency (ER) | payer OTHER, SELFPAY ==
[2023-09-30 08:12] VITALS: BP 102/69; PULSE 88; RESP 16; TEMP 37.1; O2SAT 99
--- NOTE | 2023-09-30 08:13 | ED.SKABFB ---
HPI - Skin/Abscess/Foreign Bdy General Chief complaint: Urogenital-Female Stated complaint: Vaginal Problems Time Seen by Provider: 09/30/23 08:14 Source: patient, RN notes reviewed and old records reviewed Mode of arrival: ambulatory Limitations: no limitations History of Present Illness HPI narrative: Patient has been taking amoxicillin that was prescribed by her dentist. She has 1 pill left of a 10 day course. She states that 3 days ago she began to notice thick white discharge, now has vaginal itching. Has had yeast infections in the past. Reports that this feels the same. She denies any abdominal pain. She denies any urinary symptoms. She denies fever, chills, sweats. Voices no other concerns today. Related Data Allergies Allergy/AdvReac Type Severity Reaction Status Date / Time No Known Allergies Allergy Unknown Verified 05/23/23 16:57 Review of Systems Review of Systems: All systems reviewed & are unremarkable except as noted in HPI and below Constitutional: Constitutional: Reports no additional constitutional complaints ENT: Reports system reviewed and no additional complaints, except as documented Cardiovascular: Cardiovascular: Reports no additional cardiovascular complaints Respiratory: Respiratory: Reports no additional respiratory complaints Gastrointestinal: Gastrointestinal: Reports no additional gastrointestinal complaints Genitourinary: Genitourinary: Reports no additional female genitourinary complaints and Reports as per HPI [facility] Past Medical History Medical History Abnormal Pap smear of cervix 2012 (+hpv) 07/27/2015 lgsil mild dyplasia +hpv Encounter for screening examination for sexually transmitted disease GTD (gestational trophoblastic disease) s/p chemotherapy [id number] 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 Molar Nexplanon insertion 12/17/13 insertion 12/26/16 removal/insertion Nexplanon removal 12/26/16 removal/insertion 06/12/18 removal Uterine cancer Vaginal delivery 09/09/13 Néstor no complications 08/21/20 [facility] Surgical History Surgical History History of elective x3 Family History Family History Other No pertinent family history Social History Social History Smoking status: Never smoker Second hand tobacco smoke exposure: No Alcohol intake: current Drinks per week: 1 Substance use: never Substance use type: does not use Do You Feel Safe in your Home?: Yes Living arrangements: other Additional living arrangements comments: Occupation/Education: occupation Additional occupation/education comments: [employer] Gender identity (if verbalized by the patient): Female Sexual Orientation (if Verbalized by the Patient): Straight or Heterosexual Spiritual care concerns: No Comments At the time of my signature, I reviewed and agree with the nursing past medical, surgical, social, and family history. There is no relevant family history pertinent to the patient complaint. Exam Const: General: cooperative, no acute distress, alert and awake Orientation/consciousness: oriented to person, oriented to place and oriented to time HENMT: Head: normal to inspection Resp: Effort & Inspection: normal respiratory effort and able to speak in complete sentences Auscultation: clear to auscultation bilaterally, no crackles, no rales, no rhonchi and no wheezes Cardio: Palpation: normal PMI Rate: regular rate Rhythm: regular rhythm Heart sounds: S1 normal heart sound present and S2 normal heart sound present GI: GI Palp: No abdominal tenderness, Yes Soft to palpation, No Tenderness to palpation present (GI) and No Guarding due to palpation present (GI) Neuro: General: oriented to person, orient
== END 2023-09-30 08:33 | disposition home or self-care (01) ==
PROVIDERS: Emergency Provider Nurse Practitioner Family
DX: B37.31 Acute candidiasis of vulva and vagina (principal); Z85.42 Personal history of malignant neoplasm of other parts of uterus
CPT/HCPCS: 99213; G0463

== ENCOUNTER 2023-10-01 02:54 | Emergency (ER) | payer OTHER, SELFPAY ==
[2023-10-01 02:59] VITALS: BP 104/68; PULSE 87; RESP 16; TEMP 36.8; O2SAT 98
--- NOTE | 2023-10-01 06:54 | PC.NURSE ---
Patient called for room assignment, no answer and not seen in waiting room. Patient marked as left without being seen, triage.
== END 2023-10-01 07:02 | disposition left against medical advice (07) ==
LOC: ANHED 07:00
DX: R30.0 Dysuria (principal)
CPT/HCPCS: 99199

== ENCOUNTER 2023-10-01 15:45 | Emergency (ER) | payer OTHER, SELFPAY ==
[2023-10-01 16:00] VITALS: BP 125/96; PULSE 100; RESP 16; TEMP 36.5; O2SAT 99
[2023-10-01 20:55] LABS: BEDSIDEPREGUCG Negative
--- NOTE | 2023-10-01 21:00 | ED.FEMALEGU ---
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 Ongoing over the last several days. Reports she was diagnosed with a yeast infection and given fluconazole at urgent care. She has had no relief with this. Report burning and itching. Denies fever or hematuria. Related Data Allergies Allergy/AdvReac Type Severity Reaction Status Date / Time No Known Allergies Allergy Unknown Verified 10/01/23 03:02 Review of Systems Review of Systems: CONSTITUTIONAL: Denies fever GENITOURINARY: Reports dysuria. Denies hematuria. SKIN: Reports itching. Denies rash All systems reviewed & are unremarkable except as noted in HPI and below PMFSH Past Medical History Medical History Abnormal Pap smear of cervix 2012 (+hpv) 07/27/2015 lgsil mild dyplasia +hpv Encounter for screening examination for sexually transmitted disease GTD (gestational trophoblastic disease) s/p chemotherapy [id number] 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 Molar Nexplanon insertion 12/17/13 insertion 12/26/16 removal/insertion Nexplanon removal 12/26/16 removal/insertion 06/12/18 removal Uterine cancer Vaginal delivery 09/09/13 Néstor no complications 08/21/20 J[facility] Surgical History Surgical History History of elective x3 Family History Family History Other No pertinent family history Social History Social History Smoking status: Never smoker Second hand tobacco smoke exposure: No Alcohol intake: current Drinks per week: 1 Substance use: never Substance use type: does not use Do You Feel Safe in your Home?: Yes Living arrangements: other Additional living arrangements comments: Occupation/Education: occupation Additional occupation/education comments: [employer] Gender identity (if verbalized by the patient): Female Sexual Orientation (if Verbalized by the Patient): Straight or Heterosexual Spiritual care concerns: No Exam Narrative: GENERAL: Well-appearing, well-nourished, and in no acute distress. HEAD: Normocephalic, atraumatic. EYES: EOMI. EXTREMITIES: Normal range of motion. No edema. SKIN: Warm, dry, no rash. NEURO: No focal deficits. Alert and oriented x3. PSYCH: Normal mood and affect PELVIC: Mild redness and white discharge of the vulva. Moderate amount of white discharge in the vaginal vault. Cervix is normal Course Course Emergency Course: Patient updated on her workup and agrees with plan of care Vital Signs Vital signs: Vital Signs Temperature 97.7 F 10/01/23 16:00 Pulse Rate 100 10/01/23 16:00 Respiratory Rate 16 10/01/23 16:00 Blood Pressure 125/96 H 10/01/23 16:00 Pulse Oximetry 99 10/01/23 16:00 Oxygen Delivery Room Air 10/01/23 16:00 Temperature 97.7 F 10/01/23 16:00 Pulse Rate 100 10/01/23 16:00 Respiratory Rate 16 10/01/23 16:00 Blood Pressure 125/96 H 10/01/23 16:00 Pulse Oximetry 99 10/01/23 16:00 Oxygen Delivery Room Air 10/01/23 16:00 MDM - Female Genitourinary MDM Narrative Medical decision making narrative: Patient presents to the emergency department for vaginal itching, irritation of white discharge. Exam is consistent with yeast infection. Urine with 3+ leukocyte esterase and 51-100 white blood cells. This will be sent for culture. Patient will be started on Macrobid. Chlamydia, gonorrhea, Trichomonas are negative. test is negative. Patient will be scott
[2023-10-01 21:03] LABS: Add Urine Microscopic? YES; Appearance Urine Cloudy (Clear); Bacteria Urine 1+ /hpf; Bilirubin Urine Negative (Negative); Blood Urine Negative (Negative); Color Urine Yellow (Yellow); Glucose Urine UA Negative (Negative); Ketones Urine Trace mg/dL (Negative); Leukocyte Esterase Ur 3+ LEU/UL (Negative); Nitrate Urine Negative (Negative); Non Pathogenic Casts 0-2; Protein Urine Negative (Negative); RBC Urine 0-2 /hpf (0-2); Specific Grav Ur 1.025 (1.001-1.035); Squamous Epithelial Cell Urine Occasional /hpf (Few); WBC Urine 51-100 /hpf (0-3); pH Urine 6.5 (5.0-9.0)
[2023-10-01 22:01] LABS: Trichomonas Vag PCR NOT DETECTED (NOT DETECTE)
[2023-10-01 22:26] LABS: Chlamydia trachomatis NOT DETECTED (NOT DETECTE); Neisseria gonorrhoeae PCR NOT DETECTED (NOT DETECTE)
== END 2023-10-01 23:10 | disposition home or self-care (01) ==
PROVIDERS: Emergency Provider Physician Assistant
DX: B37.31 Acute candidiasis of vulva and vagina (principal); R82.81 Pyuria
CPT/HCPCS: 81001; 81025; 87070; 87086; 87088; 87491; 87591; 87661; 99284